=== PATIENT | female | born 1965 | race Caucasian/White ===

== ENCOUNTER 2018-10-24 16:58 | Emergency (ER) | payer BC, OTHER ==
[~2018-10-24] VITALS: Ht 160 cm; Wt 73.9 kg
[~2018-10-24 16:58] MED LIST: DIGO0.1296 PO; FURO-572 PO; LEVO500T6 PO; LEVO5SOL4 IV; LISI10TA11 PO; POTA10TE30 PO; SILD20TA PO
[2018-10-24 17:12] VITALS: BP 112/61
--- NOTE | 2018-10-24 17:18 | NUR ---
VSS, PT AMBULATED TO LOBBY
--- NOTE | 2018-10-24 18:20 | NUR ---
C/O SEVERE CHEST CONGESTION AND COUGH X 4 DAYS, WENT TO [facility]. PT REPORTS HX OF COPD, NORMAL O2 SAT 90. PT STATES COUGH CAUSES PLEURETIC CHEST PAIN. EXPELLLING GREEN SPUTUM. . DENIES N/V/D; SKIN IS PINK/WARM/DRY; AAOX4 WITH EVEN AND STEADY GAIT; HR EVEN AND REGULAR; PT DENIES ANY FEVER, CP, SOB, OR COUGH AT THIS TIME; VSS; PATIENT POSITIONED FOR COMFORT; HOB ELEVATED; BEDRAILS UP X2; BED DOWN. ER MD MADE AWARE OF PT STATUS.
--- NOTE | 2018-10-24 18:24 | NUR ---
PT AMBULATES TO BED 7
[2018-10-24] MEDS ORDERED: IPRATROPIUM 0.02% 0.5 MG/2.5 ML NEBU INH ONE (18:40)
[2018-10-24] MEDS ORDERED: ALBUTEROL 0.083% 2.5 MG/3 ML NEBU INH ONE (18:40)
[2018-10-24] MEDS ORDERED: methylPREDNISolone SS 125 MG/2 ML VIAL IVP ONE (18:40)
--- NOTE | 2018-10-24 19:05 | NUR ---
ENDORSE PT TO PM NURSE.
[2018-10-24 19:07] LABS: BASOPHILS % (AUTO) 0.3 % (0.0-2.0); EOSINOPHILS # (AUTO) 0.4 K/uL (0-0.4); EOSINOPHILS % (AUTO) 6.3 % (0.0-4.0); HEMATOCRIT 41.9 % (36-48); HEMOGLOBIN 13.4 g/dL (12.0-16.0); LYMPHOCYTES # (AUTO) 2.4 K/uL (2.5-16.5); LYMPHOCYTES % (AUTO) 35.3 % (20.5-51.1); MEAN CORPUSCULAR HEMOGLOBIN 28 pg (27-31); MEAN CORPUSCULAR HGB CONC 32 g/dL (33-37); MEAN CORPUSCULAR VOLUME 87.2 fL (80-94); MONOCYTES # (AUTO) 0.6 K/uL (0.8-1.0); MONOCYTES % (AUTO) 8.4 % (1.7-9.3); NEUTROPHILS # (AUTO) 3.3 K/uL (1.8-7.7); NEUTROPHILS % (AUTO) 49.7 % (42.2-75.2); PLATELET COUNT (AUTO) 216 K/uL (140-450); RED BLOOD CELL COUNT(AUTO) 4.81 MIL/uL (4.20-5.40); RED CELL DISTRIBUTION WIDTH 15.3 % (11.6-13.7); WHITE BLOOD COUNT (AUTO) 6.7 K/uL (4.8-10.8)
--- NOTE | 2018-10-24 19:14 | NUR ---
PT RECIEVING BREATHING TRATEMENT AT THIS TIME.
[2018-10-24 19:21] LABS: ALBUMIN 3.6 g/dL (3.4-5.0); CARBON DIOXIDE 25.9 mmol/L (21-32); CREATININE 1.4 mg/dL (0.6-1.3); POTASSIUM 3.9 mmol/L (3.5-5.1); TOTAL BILIRUBIN 0.2 mg/dL (0.0-1.0)
--- NOTE | 2018-10-24 19:25 | NUR ---
PT AMBULATED TO RESTROOM TO GIVE URINE SAMPLE AT THIS TIME.
[2018-10-24 20:05] LABS: PROTHROMBIN TIME 9.8 secs (10.8-13.4)
[2018-10-24 20:15] LABS: APPEARANCE,URINE CLEAR (CLEAR); BILIRUBIN,URINE NEGATIVE (NEGATIVE); BLOOD, URINE NEGATIVE (NEGATIVE); COLOR,URINE YELLOW (YELLOW); LEUKOCYTE ESTERASE ,URINE NEGATIVE (NEGATIVE); NITRITE, URINE NEGATIVE (NEGATIVE); UGLUCOSE NEGATIVE (NEGATIVE)
--- NOTE | 2018-10-24 22:17 | NUR ---
PT O2 SAT AT 87% ON 2 L VIA NASAL CANNULA. SAT PT UP IN FOWLERS POSITION AND PUT O2 ON 3L. PT O2 SAT INCREASED TO 90%. PROVIDED PT WITH JUICE AND CRACKERS UPON PT REQUEST FOR SOMETHING TO SNACK ON.
--- NOTE | 2018-10-24 22:35 | NUR ---
PT O2 SAT DOWN TO 87%, PT PUT ON 4L VIA FACE MASK. ER MD NOTIFIED
[2018-10-24] MEDS ORDERED: ALBUTEROL SULFATE/IPRATROPIU 3 ML SOL IH ONE (22:40)
--- NOTE | 2018-10-24 22:55 | NUR ---
RT AT BEDSIDE AT THIS TIME.
--- NOTE | 2018-10-24 23:50 | NUR ---
Patient does not wish to proceed with medical care recommended by DR OROURKE. Patient given information related to possible complications, up to and including , which could occur as a result of leaving hospital at this time. Patient verbalizes understanding of risks involved leaving against medical advice. Patient has signed AMA form.
[2018-10-24 23:59] VITALS: BP 109/45
== END 2018-10-24 23:59 | disposition left against medical advice (07) ==
LOC: MED 16:58
DX: J96.90 Respiratory failure, unspecified, unspecified whether with hypoxia or hypercapnia (principal); J44.1 Chronic obstructive pulmonary disease with (acute) exacerbation; B34.9 Viral infection, unspecified; I27.20 Pulmonary hypertension, unspecified; N28.9 Disorder of kidney and ureter, unspecified; I10 Essential (primary) hypertension; Z79.2 Long term (current) use of antibiotics; Z79.899 Other long term (current) drug therapy
CPT/HCPCS: 36415; 71045; 80053; 81003; 83605; 83880; 84484; 85025; 85610; 85730; 87040; 87804; 93005; 96374; 99291; J2930; J7613; J7620; J7644; Q0092; 36600; 82803; 94640; 96372